=== PATIENT | male | born 1950 | race American Indian/Alaskan Native ===

== ENCOUNTER 2017-07-17 15:29 | Emergency (ER) | payer MEDICARE, OTHER ==
[2017-07-17 15:44] VITALS: BP 118/64
--- NOTE | 2017-07-17 15:59 | EDM.PDOC ---
ED HPI GENERAL MEDICAL PROBLEM - General Chief Complaint: ENT Problem Stated Complaint: SORE THROAT,FEVER [id number] Time Seen by Provider: 07/17/17 15:54 Source of Information: Reports: Patient History Limitations: Reports: No Limitations - History of Present Illness INITIAL COMMENTS - FREE TEXT/NARRATIVE: Patient complains of progressively worsening cough. Symptoms began 3 days ago. Yesterday he helped a friend remove some Styrofoam insulation. Since then he has a nonproductive cough and mild restriction with his breathing. Denies chest pressure or chest pain. Yesterday he felt feverish and took ibuprofen. Onset: Today Duration: Day(s): Location: Reports: Chest Quality: Reports: Dull Associated Symptoms: Reports: Cough, Fever/Chills - Related Data Allergies Allergy/AdvReac Type Severity Reaction Status Date / Time No Known Allergies Allergy Verified 07/17/17 15:35 Home Meds: Home Meds Aspirin [Children's Aspirin] 81 mg PO DAILY 07/26/13 [History] Famotidine 20 mg PO DAILY 07/26/13 [History] Fenofibric Acid (Choline) [Fenofibric Acid] 45 mg PO DAILY 07/26/13 [History] Isosorbide Mononitrate [Imdur] 15 mg PO DAILY 07/26/13 [History] Lisinopril 2.5 mg PO DAILY 07/26/13 [History] Metoprolol Tartrate 12.5 mg PO DAILY 07/26/13 [History] Simvastatin [Zocor] 40 mg PO DAILY 07/26/13 [History] Past Medical History Cardiovascular History: Reports: CAD - Past Surgical History Cardiovascular Surgical History: Reports: Carotid Stents Social & Family History - Tobacco Use Smoking Status *Q: Never Smoker Second Hand Smoke Exposure: No - Recreational Drug Use Recreational Drug Use: No - Living Situation & Occupation Living situation: Reports: , with Family Occupation: Employed ED ROS ENT - Review of Systems Review Of Systems: See Below Constitutional: Reports: Fever, Chills HEENT: Denies: Sinus Problem Respiratory: Reports: Cough. Denies: Shortness of Breath, Wheezing, Sputum Cardiovascular: Reports: No Symptoms Endocrine: Reports: No Symptoms GI/Abdominal: Reports: No Symptoms Musculoskeletal: Reports: No Symptoms Skin: Reports: No Symptoms Neurological: Reports: No Symptoms ED EXAM, ENT - Physical Exam Exam: See Below Exam Limited By: No Limitations General Appearance: Alert, WD/WN Ears: Normal TMs Nose: Normal Inspection, Normal Mucousa Mouth/Throat: Normal Inspection, Normal Lips, Normal Oropharynx Neck: Normal Inspection, Supple, Non-Tender Respiratory/Chest: No Respiratory Distress, Normal Breath Sounds, Rhonchi. No: Wheezing Cardiovascular: Normal Peripheral Pulses, Regular Rate, Rhythm Extremities: Normal Inspection, Normal Capillary Refill Neurological: Alert, Oriented, CN II-XII Intact Course - Vital Signs Last Recorded V/S: Last Vital Signs Temp 97.9 F 07/17/17 15:36 Pulse 82 07/17/17 15:36 Resp 16 07/17/17 15:36 BP 118/64 07/17/17 15:36 Pulse Ox 100 07/17/17 15:36 - Orders/Labs/Meds Orders: Active Orders 24 hr Category Date Time Status RT Aerosol Therapy [RC] ASDIRECTED Care 07/17/17 16:00 Active Meds: Medications Discontinued Medications Generic Name Dose Route Start Last Admin Trade Name Freq PRN Reason Stop Dose Admin Albuterol/Ipratropium 3 ml 07/17/17 16:00 Duoneb 3.0-0.5 Mg/3 Ml NEB 07/17/17 16:01 ONETIME ONE Departure - Departure Time of Disposition: 16:26 Disposition: Home, Self-Care 01 Condition: Good Clinical Impression: Bronchitis - Discharge Information Instructions: Acute Bronchitis, Adult, [id number] Forms: ED Department Discharge Additional Instructions: Use antibiotics as directed. Take prednisone as directed. Follow up with her regular provider next week if needed. Call or return if problems questions or concerns - My Orders Last 24 Hours: My Active Orders 07/17/17 16:00 RT Aerosol Therapy [RC] ASDIRECTED - Assessment/Plan Last 24 Hours: My Active Orders 07/17/17 16:00 RT Aerosol Therapy [RC] ASDIRECTED
[2017-07-17] MEDS ORDERED: Albuterol/Ipratropium 3.0-0.5 MG/3 ML Neb Soln NEB ONE (16:00)
== END 2017-07-17 16:35 | disposition home or self-care (01) ==
LOC: DL.ED 15:29
DX: J40 Bronchitis, not specified as acute or chronic (principal); I25.10 Atherosclerotic heart disease of native coronary artery without angina pectoris; Z95.5 Presence of coronary angioplasty implant and graft; Z79.899 Other long term (current) drug therapy; Z79.82 Long term (current) use of aspirin
CPT/HCPCS: 94640; 99284

== ENCOUNTER 2023-05-02 21:03 | Emergency (ER) | payer MEDICARE, OTHER ==
[2023-05-02 21:49] LABS: BASOPHILS PERCENT AUTO 0.3 % (0.0-1.0); HEMATOCRIT 43.6 % (40.0-54.0); HEMOGLOBIN 14.8 g/dL (14.0-18.0); LYMPHOCYTES PERCENT AUTO 34.3 % (20.5-50.1); MEAN CORPUSCULAR HEMOGLOBIN 29.5 pg (27.0-34.0); MEAN CORPUSCULAR HGB CONC 33.9 g/dL (33.0-35.0); MEAN CORPUSCULAR VOLUME 86.9 fL (80-100); MONOCYTES PERCENT AUTO 7.2 % (2-8); NEUTROPHILS PERCENT AUTO 57.2 % (42.2-75.2); PLATELET COUNT,PLT 173 10^3/uL (150-450); RED BLOOD CELL COUNT 5.02 10^6/uL (4.6-6.2); WHITE BLOOD CELL COUNT,WBC 7.1 10^3/uL (5.0-10.0)
[2023-05-02 22:10] LABS: ANION GAP 10.8 mEq/L (7-13); CREATININE 0.91 mg/dL (0.70-1.30); EST CRCL DRUG DOSING (CG) 67.86 mL/min; POTASSIUM,K 3.8 mmol/L (3.5-5.1)
[2023-05-02 22:29] VITALS: BP 143/75; PULSE 53
== END 2023-05-02 22:31 | disposition home or self-care (01) ==
LOC: DL.ED 21:03
DX: I10 Essential (primary) hypertension (principal); I25.10 Atherosclerotic heart disease of native coronary artery without angina pectoris; Z79.82 Long term (current) use of aspirin; Z79.899 Other long term (current) drug therapy
CPT/HCPCS: 36415; 80048; 84484; 85025; 93010; 99283; 99284

== ENCOUNTER 2024-08-29 22:40 | Emergency (ER) | payer SELFPAY ==
[2024-08-29 22:48] VITALS: BP 179/79; PULSE 68
== END 2024-08-29 23:09 | disposition home or self-care (01) ==
LOC: DL.ED 22:40
DX: I10 Essential (primary) hypertension (principal); I25.10 Atherosclerotic heart disease of native coronary artery without angina pectoris; Z79.82 Long term (current) use of aspirin; Z79.899 Other long term (current) drug therapy
CPT/HCPCS: 99283